=== PATIENT | female | born 1995 | race Caucasian/White ===

== ENCOUNTER 2017-08-17 14:26 | Emergency (ER) | payer SELFPAY ==
[2017-08-17 14:31] VITALS: BP 123/78
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
[2017-08-17] MEDS ORDERED: OXYCODONE-ACETAMINOPHEN 5-325 MG TABLET PO ONE (15:27)
[2017-08-17] MEDS ORDERED: ONDANSETRON 4 MG TAB.RAPDIS PO ONE (15:27)
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
== END 2017-08-17 16:00 | disposition home or self-care (01) ==
LOC: ER 14:26
DX: J34.89 Other specified disorders of nose and nasal sinuses (principal); F10.10 Alcohol abuse, uncomplicated; Y04.8XXA Assault by other bodily force, initial encounter; F17.200 Nicotine dependence, unspecified, uncomplicated
CPT/HCPCS: 99284; 70450; 70486; 72125; S0119